=== PATIENT | female | born 1985 | race Caucasian/White ===

== ENCOUNTER 2016-12-24 02:09 | Emergency (ER) | payer SELFPAY ==
[2016-12-24] MEDS ORDERED: Oxycodone/Acetaminophen 5/325 mg Tab ONE (02:42)
[2016-12-24] MEDS ORDERED: Oxycodone/Acetaminophen 5/325 mg Tab PO STA (02:45)
[2016-12-24] MEDS ORDERED: Bacitracin 500 Units/gm Oint Foilpak UD ONE ×2 (03:04→03:05)
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
[2016-12-24] MEDS ORDERED: Silver Sulfadiazine 1% Cream (20 gm) ONE (03:57)
[2016-12-24 04:21] VITALS: BP 102/64; PULSE 62; RESP 16; TEMP 97.9
[2016-12-24 04:29] VITALS: O2SAT 100
== END 2016-12-24 04:51 | disposition home or self-care (01) ==
LOC: C.ER 02:09
DX: T23.261A Burn of second degree of back of right hand, initial encounter (principal); T23.231A Burn of second degree of multiple right fingers (nail), not including thumb, initial encounter; X12.XXXA Contact with other hot fluids, initial encounter